=== PATIENT | female | born 1960 | race African-American/Black ===

== ENCOUNTER 2020-11-12 08:53 | Observation (INO) ==
[2020-11-12 12:07] LABS: Basophils % 0.4 % (0.0-0.8); Eosinophils # 0.1 10*3/uL (0.0-0.87); Eosinophils % 1.2 % (0.00-10.9); Hematocrit 26.6 VOL% (35.7-47.0); Hemoglobin 9.1 GM/DL (12.0-16.0); Immature Granulocytes % 0.4 %; Immature Granulocytes Absolute 0.02 #; Lymphocytes # 2.2 10*3/uL (1.4-4.0); Lymphocytes % 43.8 % (21.3-54.2); Mean Corpuscular HGB Conc 34.2 GM/DL (32-36); Mean Platelet Volume 10.9 FL (9.6-12.0); Monocytes % 15.6 % (1.7-12.7); Neutrophils % 38.6 % (38.7-73.9); Platelet Count 106 T/CUMM (130-400); Red Blood Count 2.86 MC/CUMM (3.8-5.5)
[2020-11-12 12:55] LABS: Anisocytosis 1+; Lymphocytes 30 % (20-55); Platelet Estimate Adequate; Segmented Neutrophils 57 % (50-85); Smudge Cells 1+; Target Cells 1+; Total Cells Counted 100
[2020-11-12 12:56] LABS: Macrocytosis 2+
[2020-11-12 13:04] LABS: Bilirubin,Urine Negative (Negative); Blood, Urine Small mg/dL (Negative); Glucose,Urine (UA) Negative (Negative); Ketones,Urine Negative (Negative); Nitrite,Urine Negative (Negative); Protein,Urine Negative; RBC,Urine 3 /HPF (0-4); Squamous Epithelial Cell,Urine Occasional /HPF (0-10); Urine Appearance CLEAR (Clear); Urine Color Amber (Yellow); Urine Specific Gravity 1.006 (1.001-1.035)
[2020-11-12 14:33] LABS: Albumin 1.4 G/DL (3.4-5.0); Bilirubin,Total 4.6 MG/DL (0.20-1.00); Calcium 7.7 MG/DL (8.5-10.1); Osmolality,Calculated 273.7 MOS/KG (273-304); Potassium 2.6 MMOL/L (3.5-5.1); Total Protein 8.1 G/DL (6.4-8.2)
[2020-11-12] MEDS ORDERED: POTASSIUM CHLORIDE 20 MEQ TABLET PO STA (14:39)
[2020-11-12] MEDS ORDERED: ONDANSETRON 4 MG/2 ML VIAL IV PRN (15:36)
[2020-11-12] MEDS ORDERED: DEXTROSE 50% 25 GM/50 ML VIAL IV PRN (15:36)
[2020-11-12] MEDS ORDERED: GLUCAGON 1 MG VIAL IM PRN (15:36)
[2020-11-12 16:36] LABS: Barbiturates Screen,Urine Negative (Negative); Benzodiazepines Screen,Urine Negative (Negative); Cannabinoid Screen,Urine Negative (Negative); Opiate Screen,Urine Negative (Negative); Phencyclidine Screen,Urine Negative (Negative)
[2020-11-12] MEDS ORDERED: POTASSIUM CHLORIDE RIDER 20 MEQ/100 ML PREMIX IV PRN (17:06)
[2020-11-12] MEDS ORDERED: POTASSIUM CHLORIDE RIDER 10 MEQ/100 ML PREMIX IV PRN (17:06)
[2020-11-12 17:19] LABS: Basophils % 0.4 % (0.0-0.8); Eosinophils # 0.1 10*3/uL (0.0-0.87); Hemoglobin 8.4 GM/DL (12.0-16.0); Immature Granulocytes % 0.4 %; Immature Granulocytes Absolute 0.02 #; Lymphocytes # 2.1 10*3/uL (1.4-4.0); Lymphocytes % 42.8 % (21.3-54.2); Mean Platelet Volume 9.8 FL (9.6-12.0); Monocytes % 14.5 % (1.7-12.7); Neutrophils % 40.9 % (38.7-73.9); Platelet Count 103 T/CUMM (130-400); Red Blood Count 2.61 MC/CUMM (3.8-5.5); Red Cell Distribution Width 16.8 % (9.3-17.3); White Blood Count 4.8 T/CUMM (4-12)
[2020-11-12 17:37] LABS: % Iron Saturation 92.1 % (18-50); Total Protein 7.9 G/DL (6.4-8.2)
[2020-11-12] MEDS: POTASSIUM CHLORIDE 20 MEQ TABLET PO PRN ×3 (17:39→23:26)
[2020-11-12 17:40] LABS: Eosinophils 4 % (0-10); Lymphocytes 24 % (20-55); Platelet Estimate Adequate; Segmented Neutrophils 63 % (50-85); Smudge Cells 1+; Total Cells Counted 100
[2020-11-12 17:40] LABS: Partial Thromboplastin Time 52.8 SECS (23.9-33.8)
[2020-11-12 17:41] LABS: Anisocytosis 2+; Macrocytosis 2+; Target Cells 1+
[2020-11-12 17:54] LABS: INR 2.7; PT Patient Result 27.2 SECS (10.5-12.0)
[2020-11-12 18:23] LABS: Folate 5.89 NG/ML (5.38-24.0); Vitamin B12 > 2000 PG/ML (211-911)
[2020-11-12 18:27] LABS: Sedimentation Rate-Westergren 125 MM/HR (0-30)
[2020-11-13] MEDS: POTASSIUM CHLORIDE 20 MEQ TABLET PO PRN (00:58)
[2020-11-13 06:13] LABS: Basophils % 0.4 % (0.0-0.8); Eosinophils # 0.1 10*3/uL (0.0-0.87); Eosinophils % 1.5 % (0.00-10.9); Hematocrit 20.3 VOL% (35.7-47.0); Hemoglobin 7.2 GM/DL (12.0-16.0); Immature Granulocytes % 0.4 %; Immature Granulocytes Absolute 0.02 #; Lymphocytes # 2.7 10*3/uL (1.4-4.0); Mean Corpuscular HGB Conc 35.5 GM/DL (32-36); Mean Corpuscular Volume 91.9 FL (87-102); Mean Platelet Volume 9.7 FL (9.6-12.0); Monocytes % 13.6 % (1.7-12.7); Neutrophils % 35.1 % (38.7-73.9); Red Blood Count 2.21 MC/CUMM (3.8-5.5); Red Cell Distribution Width 16.7 % (9.3-17.3); White Blood Count 5.5 T/CUMM (4-12)
[2020-11-13 06:14] LABS: Platelet Count 97 T/CUMM (130-400)
[2020-11-13] MEDS ORDERED: ACETAMINOPHEN 325 MG TABLET PO ONE (06:22)
[2020-11-13 06:28] LABS: Eosinophils 3 % (0-10); Hypochromasia 1+; Lymphocytes 37 % (20-55); Platelet Estimate Decreased; Segmented Neutrophils 51 % (50-85); Target Cells Few; Total Cells Counted 100
[2020-11-13 07:55] LABS: Total Protein (Chem) 7.9 G/DL (6.4-8.3)
[2020-11-13] MEDS ORDERED: PHYTONADIONE 5 MG/5 ML ORAL.SYR PO ONE (07:55)
[2020-11-13 07:57] LABS: Albumin 1.2 G/DL (3.4-5.0); Bilirubin,Total 4.7 MG/DL (0.20-1.00); Calcium 7.6 MG/DL (8.5-10.1); Osmolality,Calculated 278.1 MOS/KG (273-304); Potassium 2.9 MMOL/L (3.5-5.1); Total Protein 6.7 G/DL (6.4-8.2)
[2020-11-13 09:25] LABS: Albumin (SPE) Rel % 25.2 %; Alpha 1 (SPE) 0.1 G/DL (0.1-0.4); Alpha 1 (SPE) Rel % 1.4 %; Alpha 2 (SPE) 0.3 G/DL (0.4-1.0); Alpha 2 (SPE) Rel % 3.6 %; Beta (SPE) 0.5 G/DL (0.5-1.1); Beta (SPE) Rel % 6.5 %; Gamma (SPE) Rel % 63.3 %
[2020-11-13] MEDS: MULTIVITAMIN (BEROCCA) TABLET PO SCH (09:39)
[2020-11-13] MEDS: POTASSIUM CHLORIDE 20 MEQ TABLET PO SCH ×2 (09:39→12:29)
[2020-11-13] MEDS: FOLIC ACID 1 MG TABLET PO SCH (09:39)
[2020-11-13] MEDS: PANTOPRAZOLE 40 MG TABLET PO SCH (09:39)
[2020-11-13] MEDS: THIAMINE 100 MG TABLET PO SCH (09:39)
[2020-11-13 10:12] LABS: Hematocrit 22.9 VOL% (35.7-47.0); Hemoglobin 7.8 GM/DL (12.0-16.0)
[2020-11-13 10:26] LABS: Hepatitis B Core IgM Quant 0.09 Index; Hepatitis B Surface Ag Quant 0.23 Index; Hepatitis B Surface Ag Result Non-Reactive (NonReactive); Hepatitis C Virus Ab Quant 0.39 Index; Hepatitis C Virus Ab Result Non-Reactive (NonReactive)
[2020-11-13 15:06] LABS: Hematocrit 21.6 VOL% (35.7-47.0); Hemoglobin 7.4 GM/DL (12.0-16.0)
[2020-11-13 21:11] LABS: Hematocrit 21.5 VOL% (35.7-47.0); Hemoglobin 7.2 GM/DL (12.0-16.0)
[2020-11-14 07:02] LABS: Albumin 1.2 G/DL (3.4-5.0); Calcium 7.3 MG/DL (8.5-10.1); Osmolality,Calculated 281.8 MOS/KG (273-304); Potassium 3.2 MMOL/L (3.5-5.1)
[2020-11-14 07:48] LABS: Basophils % 0.3 % (0.0-0.8); Eosinophils # 0.1 10*3/uL (0.0-0.87); Eosinophils % 1.4 % (0.00-10.9); Hematocrit 23.9 VOL% (35.7-47.0); Hemoglobin 8.3 GM/DL (12.0-16.0); Immature Granulocytes % 0.3 %; Immature Granulocytes Absolute 0.02 #; Lymphocytes % 51.6 % (21.3-54.2); Mean Corpuscular HGB Conc 34.7 GM/DL (32-36); Mean Corpuscular Volume 93.7 FL (87-102); Mean Platelet Volume 9.7 FL (9.6-12.0); Monocytes % 10.2 % (1.7-12.7); Neutrophils % 36.2 % (38.7-73.9); Platelet Count 103 T/CUMM (130-400); Red Blood Count 2.55 MC/CUMM (3.8-5.5); Red Cell Distribution Width 17.5 % (9.3-17.3); White Blood Count 5.8 T/CUMM (4-12)
[2020-11-14 08:01] LABS: PT Patient Result 26.4 SECS (10.5-12.0)
[2020-11-14 08:02] LABS: INR 2.5
[2020-11-14 08:04] VITALS: BP 129/67
[2020-11-14 08:09] LABS: Eosinophils 1 % (0-10); Hypochromasia 1+; Lymphocytes 44 % (20-55); Microcytosis 1+; Platelet Estimate Decreased; Segmented Neutrophils 48 % (50-85); Total Cells Counted 100
[2020-11-14] MEDS ORDERED: PHYTONADIONE 5 MG/5 ML ORAL.SYR PO ONE (09:00)
[2020-11-14] MEDS ORDERED: POTASSIUM CHLORIDE 20 MEQ TABLET PO ONE (09:00)
[2020-11-14 10:31] LABS: Hemoglobin A1 (Alkaline) 97.4 % (96.5-98.5); Hemoglobin A2 (Alkaline) 2.6 % (1.5-3.5)
[2020-11-14] MEDS: MULTIVITAMIN (BEROCCA) TABLET PO SCH (10:57)
[2020-11-14] MEDS: THIAMINE 100 MG TABLET PO SCH (10:57)
[2020-11-14] MEDS: PANTOPRAZOLE 40 MG TABLET PO SCH (10:58)
[2020-11-14] MEDS: FOLIC ACID 1 MG TABLET PO SCH (10:58)
== END 2020-11-14 11:36 | disposition home or self-care (01) ==
LOC: N.ED 08:53 → N.EDINP 08:53 → N.5E 16:25 → UNDODISOB 11-14 10:50
PROVIDERS: ADMIT Internal Medicine Geriatric Medicine; ATTEND Internal Medicine Geriatric Medicine

== ENCOUNTER 2020-11-21 11:43 | Inpatient (IN) ==
[2020-11-21 13:15] LABS: Basophils % 0.6 % (0.0-0.8); Eosinophils # 0.1 10*3/uL (0.0-0.87); Eosinophils % 1.2 % (0.00-10.9); Hematocrit 26.8 VOL% (35.7-47.0); Immature Granulocytes % 0.5 %; Immature Granulocytes Absolute 0.03 #; Lymphocytes # 2.2 10*3/uL (1.4-4.0); Lymphocytes % 34.5 % (21.3-54.2); Mean Corpuscular HGB Conc 33.6 GM/DL (32-36); Mean Platelet Volume 9.8 FL (9.6-12.0); Monocytes % 10.9 % (1.7-12.7); NRBC # 0.02 10*3/uL; Neutrophils % 52.3 % (38.7-73.9); Platelet Count 122 T/CUMM (130-400); Red Blood Count 2.85 MC/CUMM (3.8-5.5); Red Cell Distribution Width 16.8 % (9.3-17.3); White Blood Count 6.4 T/CUMM (4-12)
[2020-11-21 13:35] LABS: Albumin 1.5 G/DL (3.4-5.0); Bilirubin,Total 4.8 MG/DL (0.20-1.00); Osmolality,Calculated 266.1 MOS/KG (273-304); Potassium 2.8 MMOL/L (3.5-5.1); Total Protein 8.9 G/DL (6.4-8.2)
[2020-11-21] MEDS ORDERED: POTASSIUM CHLORIDE 20 MEQ TABLET PO STA (14:04)
[2020-11-21 14:50] LABS: Partial Thromboplastin Time 51.2 SECS (23.9-33.8)
[2020-11-21 15:00] LABS: INR > 17.6; PT Patient Result > 178.9 SECS (10.5-12.0)
[2020-11-21] MEDS ORDERED: GLUCAGON 1 MG VIAL IM PRN (16:22)
[2020-11-21] MEDS ORDERED: DEXTROSE 50% 25 GM/50 ML VIAL IV PRN (16:22)
[2020-11-21] MEDS ORDERED: ONDANSETRON 4 MG/2 ML VIAL IV PRN (16:22)
[2020-11-21] MEDS ORDERED: hydrALAZINE 20 MG/1 ML VIAL IV PRN (16:22)
[2020-11-21] MEDS ORDERED: SODIUM CHLORIDE 0.9% 1,000 ML IV PRN ×2 (16:27→21:01)
[2020-11-21] MEDS ORDERED: PHYTONADIONE INJ 10 MG in SODIUM CHLORIDE 0.9% 50 ML IV ONE (16:28)
[2020-11-21 19:10] LABS: PT Patient Result > 178.9 SECS (10.5-12.0)
[2020-11-21 19:18] LABS: INR > 17.6
[2020-11-21] MEDS ORDERED: PHYTONADIONE 5 MG/5 ML ORAL.SYR PO ONE (20:59)
[2020-11-22 02:43] LABS: Amorphous Crystals,Urine Few /HPF (Few); Bacteria,Urine Few /HPF (Few); Bilirubin,Urine Negative (Negative); Blood, Urine Negative (Negative); Glucose,Urine (UA) Negative (Negative); Ketones,Urine Negative (Negative); Nitrite,Urine Negative (Negative); Protein,Urine Negative; RBC,Urine 1 /HPF (0-4); Squamous Epithelial Cell,Urine Occasional /HPF (0-10); Urine Appearance CLEAR (Clear); Urine Color Amber (Yellow); Urine Specific Gravity 1.005 (1.001-1.035)
[2020-11-22 06:04] LABS: INR 1.4
[2020-11-22 06:06] LABS: PT Patient Result 15.7 SECS (10.5-12.0)
[2020-11-22 06:10] LABS: Albumin 1.9 G/DL (3.4-5.0); Bilirubin,Total 3.7 MG/DL (0.20-1.00); Calcium 8.1 MG/DL (8.5-10.1); Osmolality,Calculated 278.1 MOS/KG (273-304); Potassium 2.8 MMOL/L (3.5-5.1)
[2020-11-22 07:00] LABS: Basophils % 0.4 % (0.0-0.8); Eosinophils # 0.1 10*3/uL (0.0-0.87); Eosinophils % 1.3 % (0.00-10.9); Immature Granulocytes % 0.2 %; Immature Granulocytes Absolute 0.01 #; Lymphocytes # 1.8 10*3/uL (1.4-4.0); Lymphocytes % 37.9 % (21.3-54.2); Mean Corpuscular Volume 94.1 FL (87-102); Mean Platelet Volume 9.8 FL (9.6-12.0); Monocytes % 16.7 % (1.7-12.7); Neutrophils % 43.5 % (38.7-73.9); Red Blood Count 1.88 MC/CUMM (3.8-5.5); Red Cell Distribution Width 16.6 % (9.3-17.3); White Blood Count 4.7 T/CUMM (4-12)
[2020-11-22 07:09] LABS: Hematocrit 17.7 VOL% (35.7-47.0); Hemoglobin 6.2 GM/DL (12.0-16.0); Platelet Count 85 T/CUMM (130-400)
[2020-11-22 07:17] LABS: Hepatitis B Core IgM Quant 0.08 Index; Hepatitis B Surface Ag Quant < 0.10 Index; Hepatitis B Surface Ag Result Non-Reactive (NonReactive); Hepatitis C Virus Ab Quant 0.22 Index; Hepatitis C Virus Ab Result Non-Reactive (NonReactive)
[2020-11-22 07:33] LABS: Anisocytosis 2+; Band Neutrophils 2 % (0-10); Eosinophils 2 % (0-10); Lymphocytes 34 % (20-55); Platelet Estimate Decreased; Segmented Neutrophils 47 % (50-85); Target Cells 2+; Total Cells Counted 100
[2020-11-22 07:34] LABS: Macrocytosis 1+; Poikilocytosis Slight; Polychromasia Slight
[2020-11-22] MEDS ORDERED: SODIUM CHLORIDE 0.9% 1,000 ML IV PRN (08:57)
[2020-11-22 09:08] LABS: Hematocrit 18.4 VOL% (35.7-47.0)
[2020-11-22 09:24] LABS: Hemoglobin 6.1 GM/DL (12.0-16.0)
[2020-11-22] MEDS: POTASSIUM CHLORIDE 20 MEQ TABLET PO SCH ×3 (10:51→13:38)
[2020-11-22] MEDS: PANTOPRAZOLE 40 MG VIAL IV SCH ×2 (10:52→20:37)
[2020-11-22 13:52] LABS: Folate 6.16 NG/ML (5.38-24.0); Vitamin B12 > 2000 PG/ML (211-911)
[2020-11-22 14:02] LABS: % Iron Saturation 35.7 % (18-50); Ferritin 255.9 ng/mL (8-252)
[2020-11-22] MEDS ORDERED: MAGNESIUM SULF RIDER 2 GM/50 ML PREMIX IV ONE (15:00)
[2020-11-22 16:48] LABS: Total Protein,Peritoneal Fluid 1.4 G/DL
[2020-11-22 17:05] LABS: RBC,Peritoneal Fluid 54 T/CUMM
[2020-11-22] MEDS ORDERED: LACTULOSE 20 GM/30 ML UDCUP PO SCH (21:00)
[2020-11-22] MEDS ORDERED: CALCIUM (CARBONATE) 500 MG TABLET PO SCH (21:00)
[2020-11-23] MEDS ORDERED: MAGNESIUM SULF RIDER 4 GM/100 ML PREMIX IV PRN
[2020-11-23] MEDS ORDERED: MAGNESIUM SULF RIDER 2 GM/50 ML PREMIX IV PRN
[2020-11-23] MEDS ORDERED: POTASSIUM CHLORIDE 20 MEQ TABLET PO PRN
[2020-11-23] MEDS ORDERED: POTASSIUM CHLORIDE RIDER 10 MEQ/100 ML PREMIX IV PRN
[2020-11-23 04:16] VITALS: BP 109/64
[2020-11-23 05:29] LABS: Basophils % 0.4 % (0.0-0.8); Eosinophils # 0.1 10*3/uL (0.0-0.87); Eosinophils % 1.8 % (0.00-10.9); Hematocrit 25.8 VOL% (35.7-47.0); Immature Granulocytes % 0.5 %; Immature Granulocytes Absolute 0.03 #; Lymphocytes # 2.5 10*3/uL (1.4-4.0); Mean Corpuscular HGB Conc 33.3 GM/DL (32-36); Mean Corpuscular Volume 92.5 FL (87-102); Mean Platelet Volume 9.6 FL (9.6-12.0); Monocytes % 15.8 % (1.7-12.7); Neutrophils % 36.5 % (38.7-73.9); Platelet Count 77 T/CUMM (130-400); Red Cell Distribution Width 17.2 % (9.3-17.3); White Blood Count 5.6 T/CUMM (4-12)
[2020-11-23 05:33] LABS: INR 1.8; PT Patient Result 19.6 SECS (10.5-12.0)
[2020-11-23 05:46] LABS: Hemoglobin 8.6 GM/DL (12.0-16.0)
[2020-11-23 05:47] LABS: Red Blood Count 2.79 MC/CUMM (3.8-5.5)
[2020-11-23 05:51] LABS: Eosinophils 1 % (0-10); Lymphocytes 31 % (20-55); Platelet Estimate Decreased; Segmented Neutrophils 55 % (50-85); Total Cells Counted 100
[2020-11-23 05:54] LABS: Albumin 1.5 G/DL (3.4-5.0); Bilirubin,Total 3.9 MG/DL (0.20-1.00); Calcium 8.2 MG/DL (8.5-10.1); Osmolality,Calculated 278.1 MOS/KG (273-304); Potassium 3.5 MMOL/L (3.5-5.1); Total Protein 6.6 G/DL (6.4-8.2)
[2020-11-25] MEDS ORDERED: LACTATED RINGERS 1,000 ML IV SCH (08:00)
== END 2020-11-23 07:45 | disposition home or self-care (01) | DRG 433 ==
LOC: N.ED 11:43 → SUATTDRO 16:19 → N.5E 16:19
PROVIDERS: ADMIT Internal Medicine; ATTEND Internal Medicine

== ENCOUNTER 2021-01-13 12:09 | Inpatient (IN) ==
[2021-01-13 14:44] LABS: Basophils % 0.6 % (0.0-0.8); Eosinophils % 0.4 % (0.00-10.9); Hematocrit 29.5 VOL% (35.7-47.0); Hemoglobin 9.8 GM/DL (12.0-16.0); Immature Granulocytes % 0.6 %; Immature Granulocytes Absolute 0.04 #; Lymphocytes # 1.9 10*3/uL (1.4-4.0); Lymphocytes % 27.8 % (21.3-54.2); Mean Corpuscular HGB Conc 33.2 GM/DL (32-36); Mean Corpuscular Volume 91.3 FL (87-102); Mean Platelet Volume 10.2 FL (9.6-12.0); Monocytes % 12.6 % (1.7-12.7); Platelet Count 112 T/CUMM (130-400); Red Blood Count 3.23 MC/CUMM (3.8-5.5); Red Cell Distribution Width 19.4 % (9.3-17.3); White Blood Count 6.8 T/CUMM (4-12)
[2021-01-13 14:54] LABS: Bilirubin,Urine Negative (Negative); Blood, Urine Negative (Negative); Glucose,Urine (UA) Negative (Negative); Ketones,Urine Negative (Negative); Mucus,Urine Occasional /LPF (Occasional); Nitrite,Urine Negative (Negative); Protein,Urine Negative; RBC,Urine 1 /HPF (0-4); Squamous Epithelial Cell,Urine Occasional /HPF (0-10); Urine Appearance CLEAR (Clear); Urine Color Amber (Yellow); Urine Specific Gravity 1.017 (1.001-1.035)
[2021-01-13 14:56] LABS: INR 1.9; Partial Thromboplastin Time 56.8 SECS (23.8-32.1)
[2021-01-13 15:09] LABS: Bilirubin,Total 3.4 MG/DL (0.20-1.00); Calcium 9.2 MG/DL (8.5-10.1); Osmolality,Calculated 283.3 MOS/KG (273-304); Potassium 4.2 MMOL/L (3.5-5.1); Total Protein 9.6 G/DL (6.4-8.2)
[2021-01-13] MEDS ORDERED: ONDANSETRON 4 MG/2 ML VIAL IV PRN (15:22)
[2021-01-13] MEDS ORDERED: LACTULOSE 20 GM/30 ML UDCUP PO STA (15:25)
[2021-01-13] MEDS ORDERED: INFLUENZA VIRUS VACCINE 0.5 ML SYRINGE IM ONE (18:32)
[2021-01-13] MEDS: LACTULOSE 20 GM/30 ML UDCUP PO SCH (18:52)
[2021-01-13] MEDS: CYPROHEPTADINE 4 MG TABLET PO SCH (18:53)
[2021-01-13] MEDS: SODIUM CHLORIDE 0.9% 1,000 ML IV SCH (18:53)
[2021-01-13] MEDS: CALCIUM (CARBONATE) 500 MG TABLET PO SCH (22:12)
[2021-01-13] MEDS: levETIRAcetam 500 MG TABLET PO SCH (22:12)
[2021-01-13] MEDS: POTASSIUM CHLORIDE 20 MEQ TABLET PO SCH (22:12)
[2021-01-14] MEDS: LACTULOSE 20 GM/30 ML UDCUP PO SCH ×5 (00:21→23:17)
[2021-01-14 07:45] LABS: Albumin 1.7 G/DL (3.4-5.0); Bilirubin,Total 4.4 MG/DL (0.20-1.00); Osmolality,Calculated 282.1 MOS/KG (273-304); Potassium 3.8 MMOL/L (3.5-5.1); Total Protein 8.5 G/DL (6.4-8.2)
[2021-01-14] MEDS ORDERED: PANTOPRAZOLE 40 MG TABLET PO SCH (09:00)
[2021-01-14 09:17] LABS: Basophils % 0.6 % (0.0-0.8); Eosinophils # 0.1 10*3/uL (0.0-0.87); Eosinophils % 0.8 % (0.00-10.9); Hematocrit 30.4 VOL% (35.7-47.0); Hemoglobin 9.9 GM/DL (12.0-16.0); Immature Granulocytes % 0.5 %; Immature Granulocytes Absolute 0.03 #; Lymphocytes % 30.7 % (21.3-54.2); Mean Corpuscular HGB Conc 32.6 GM/DL (32-36); Mean Corpuscular Volume 90.7 FL (87-102); Mean Platelet Volume 9.7 FL (9.6-12.0); Monocytes % 12.5 % (1.7-12.7); Neutrophils % 54.9 % (38.7-73.9); Platelet Count 104 T/CUMM (130-400); Red Blood Count 3.35 MC/CUMM (3.8-5.5); Red Cell Distribution Width 19.3 % (9.3-17.3); White Blood Count 6.5 T/CUMM (4-12)
[2021-01-14 09:35] LABS: Hypochromasia Slight; Microcytosis Slight
[2021-01-14] MEDS: SODIUM CHLORIDE 0.9% 1,000 ML IV SCH (10:10)
[2021-01-14] MEDS: POTASSIUM CHLORIDE 20 MEQ TABLET PO SCH ×2 (10:12→21:49)
[2021-01-14] MEDS: CYPROHEPTADINE 4 MG TABLET PO SCH ×2 (10:12→17:01)
[2021-01-14] MEDS: CALCIUM (CARBONATE) 500 MG TABLET PO SCH ×2 (10:12→21:48)
[2021-01-14] MEDS: SPIRONOLACTONE 100 MG TABLET PO SCH (10:13)
[2021-01-14] MEDS: levETIRAcetam 500 MG TABLET PO SCH ×2 (10:13→21:48)
[2021-01-14] MEDS: PANTOPRAZOLE 40 MG TABLET PO SCH ×2 (10:14→21:49)
[2021-01-14] MEDS ORDERED: LORazepam 2 MG/1 ML VIAL IV PRN (15:46)
[2021-01-14 16:28] LABS: HDL Cholesterol 21 MG/DL (40-60); Risk Ratio 2.38; Triglycerides 21 MG/DL (2-150); VLDL Cholesterol 4.2 MG/DL
[2021-01-14 16:47] LABS: Folate 9.78 NG/ML (5.38-24.0); Vitamin B12 > 2000 PG/ML (211-911)
[2021-01-15] MEDS: SODIUM CHLORIDE 0.9% 1,000 ML IV SCH ×4 (05:44→20:59)
[2021-01-15 06:29] LABS: Basophils % 0.5 % (0.0-0.8); Eosinophils # 0.1 10*3/uL (0.0-0.87); Eosinophils % 1.1 % (0.00-10.9); Hematocrit 26.1 VOL% (35.7-47.0); Immature Granulocytes % 0.3 %; Immature Granulocytes Absolute 0.02 #; Lymphocytes # 2.3 10*3/uL (1.4-4.0); Lymphocytes % 35.3 % (21.3-54.2); Mean Corpuscular HGB Conc 32.6 GM/DL (32-36); Mean Corpuscular Volume 90.9 FL (87-102); Mean Platelet Volume 9.9 FL (9.6-12.0); Monocytes % 14.7 % (1.7-12.7); Neutrophils % 48.1 % (38.7-73.9); Red Blood Count 2.87 MC/CUMM (3.8-5.5); White Blood Count 6.4 T/CUMM (4-12)
[2021-01-15 06:33] LABS: Platelet Count 100 T/CUMM (130-400)
[2021-01-15 06:34] LABS: Hemoglobin 8.5 GM/DL (12.0-16.0)
[2021-01-15] MEDS: CYPROHEPTADINE 4 MG TABLET PO SCH ×2 (06:36→17:06)
[2021-01-15] MEDS: LACTULOSE 20 GM/30 ML UDCUP PO SCH ×2 (06:36→20:58)
[2021-01-15 06:53] LABS: Albumin 1.7 G/DL (3.4-5.0); Bilirubin,Total 4.3 MG/DL (0.20-1.00); Calcium 8.6 MG/DL (8.5-10.1); Osmolality,Calculated 275.4 MOS/KG (273-304); Potassium 3.9 MMOL/L (3.5-5.1); Total Protein 8.1 G/DL (6.4-8.2)
[2021-01-15] MEDS: PANTOPRAZOLE 40 MG TABLET PO SCH ×2 (09:38→20:58)
[2021-01-15] MEDS: MULTIVITAMIN (CENTRUM) TABLET PO SCH (09:38)
[2021-01-15] MEDS: FOLIC ACID 1 MG TABLET PO SCH (09:39)
[2021-01-15] MEDS: THIAMINE 100 MG TABLET PO SCH (09:39)
[2021-01-15] MEDS: POTASSIUM CHLORIDE 20 MEQ TABLET PO SCH ×2 (09:39→20:58)
[2021-01-15] MEDS: CALCIUM (CARBONATE) 500 MG TABLET PO SCH ×2 (09:39→20:58)
[2021-01-15] MEDS: levETIRAcetam 500 MG TABLET PO SCH ×2 (09:39→20:58)
[2021-01-15] MEDS: SPIRONOLACTONE 100 MG TABLET PO SCH (09:39)
[2021-01-15] MEDS: ASPIRIN CHEW 81 MG TABLET PO SCH (09:39)
[2021-01-15] MEDS: ATORVASTATIN 20 MG TABLET PO SCH (20:58)
[2021-01-16] MEDS: SODIUM CHLORIDE 0.9% 1,000 ML IV SCH ×2 (01:06→15:42)
[2021-01-16 06:05] LABS: INR 2.2; PT Patient Result 23.3 SECS (10.5-12.0)
[2021-01-16 06:18] LABS: Albumin 1.6 G/DL (3.4-5.0); Bilirubin,Total 3.8 MG/DL (0.20-1.00); Calcium 7.8 MG/DL (8.5-10.1); Osmolality,Calculated 279.4 MOS/KG (273-304); Total Protein 7.6 G/DL (6.4-8.2)
[2021-01-16 06:24] LABS: Basophils % 0.6 % (0.0-0.8); Eosinophils # 0.1 10*3/uL (0.0-0.87); Eosinophils % 1.1 % (0.00-10.9); Hematocrit 24.6 VOL% (35.7-47.0); Hemoglobin 7.9 GM/DL (12.0-16.0); Immature Granulocytes % 0.5 %; Immature Granulocytes Absolute 0.03 #; Lymphocytes # 1.9 10*3/uL (1.4-4.0); Lymphocytes % 28.6 % (21.3-54.2); Mean Corpuscular HGB Conc 32.1 GM/DL (32-36); Mean Corpuscular Volume 93.9 FL (87-102); Mean Platelet Volume 10.7 FL (9.6-12.0); Monocytes % 12.4 % (1.7-12.7); NRBC # 0.02 10*3/uL; Neutrophils % 56.8 % (38.7-73.9); Platelet Count 101 T/CUMM (130-400); Red Blood Count 2.62 MC/CUMM (3.8-5.5); Red Cell Distribution Width 18.9 % (9.3-17.3); White Blood Count 6.6 T/CUMM (4-12)
[2021-01-16] MEDS: LACTATED RINGERS 1,000 ML IV SCH (08:23)
[2021-01-16] MEDS ORDERED: ALBUMIN 5% 12.5 GM/250 ML VIAL IV ONE (08:47)
[2021-01-16] MEDS ORDERED: CALCIUM CHLORIDE 1,000 MG/10 ML VIAL IV ONE (08:54)
[2021-01-16] MEDS ORDERED: LIDOCAINE 2% 5 ML VIAL ONE (08:54)
[2021-01-16] MEDS ORDERED: propofoL 200 MG/20 ML VIAL IV ONE (08:54)
[2021-01-16] MEDS ORDERED: PHENYLEPHRINE 1 MG/10 ML SYRINGE IV ONE (08:54)
[2021-01-16] MEDS: levETIRAcetam 500 MG TABLET PO SCH ×2 (09:35→20:52)
[2021-01-16] MEDS: THIAMINE 100 MG TABLET PO SCH (09:35)
[2021-01-16] MEDS: FOLIC ACID 1 MG TABLET PO SCH (09:35)
[2021-01-16] MEDS: SPIRONOLACTONE 100 MG TABLET PO SCH (09:35)
[2021-01-16] MEDS: ASPIRIN CHEW 81 MG TABLET PO SCH (09:35)
[2021-01-16] MEDS: PANTOPRAZOLE 40 MG TABLET PO SCH ×2 (09:35→20:52)
[2021-01-16] MEDS: CALCIUM (CARBONATE) 500 MG TABLET PO SCH ×2 (09:35→20:52)
[2021-01-16] MEDS: MULTIVITAMIN (CENTRUM) TABLET PO SCH (09:35)
[2021-01-16] MEDS: CYPROHEPTADINE 4 MG TABLET PO SCH ×2 (09:35→16:50)
[2021-01-16] MEDS: POTASSIUM CHLORIDE 20 MEQ TABLET PO SCH ×2 (09:35→20:52)
[2021-01-16] MEDS: LACTULOSE 20 GM/30 ML UDCUP PO SCH ×2 (09:35→20:52)
[2021-01-16 13:33] LABS: Hematocrit 22.8 VOL% (35.7-47.0); Hemoglobin 7.5 GM/DL (12.0-16.0)
[2021-01-16] MEDS: ATORVASTATIN 20 MG TABLET PO SCH (20:52)
[2021-01-16] MEDS: RIFAXIMIN 550 MG TABLET PO SCH (20:52)
[2021-01-17 05:10] LABS: Basophils % 0.1 % (0.0-0.8); Eosinophils # 0.1 10*3/uL (0.0-0.87); Eosinophils % 1.5 % (0.00-10.9); Hemoglobin 7.7 GM/DL (12.0-16.0); Immature Granulocytes % 0.6 %; Immature Granulocytes Absolute 0.04 #; Lymphocytes % 27.7 % (21.3-54.2); Mean Corpuscular HGB Conc 32.1 GM/DL (32-36); Mean Corpuscular Volume 92.7 FL (87-102); Mean Platelet Volume 9.6 FL (9.6-12.0); Monocytes % 11.1 % (1.7-12.7); NRBC # 0.02 10*3/uL; Platelet Count 89 T/CUMM (130-400); Red Blood Count 2.59 MC/CUMM (3.8-5.5); Red Cell Distribution Width 18.6 % (9.3-17.3); White Blood Count 7.2 T/CUMM (4-12)
[2021-01-17 05:32] LABS: Calcium 9.7 MG/DL (8.5-10.1); Potassium 4.5 MMOL/L (3.5-5.1)
[2021-01-17 05:35] LABS: Atypical Lymphocytes Few
[2021-01-17] MEDS: SODIUM CHLORIDE 0.9% 1,000 ML IV SCH (05:35)
[2021-01-17] MEDS ORDERED: SODIUM CHLORIDE 0.9% 1,000 ML IV PRN (08:11)
[2021-01-17] MEDS: RIFAXIMIN 550 MG TABLET PO SCH (09:16)
[2021-01-17] MEDS: MULTIVITAMIN (CENTRUM) TABLET PO SCH (09:16)
[2021-01-17] MEDS: SPIRONOLACTONE 100 MG TABLET PO SCH (09:16)
[2021-01-17] MEDS: levETIRAcetam 500 MG TABLET PO SCH (09:17)
[2021-01-17] MEDS: CALCIUM (CARBONATE) 500 MG TABLET PO SCH (09:17)
[2021-01-17] MEDS: PANTOPRAZOLE 40 MG TABLET PO SCH (09:17)
[2021-01-17] MEDS: THIAMINE 100 MG TABLET PO SCH (09:17)
[2021-01-17] MEDS: CYPROHEPTADINE 4 MG TABLET PO SCH (09:17)
[2021-01-17] MEDS: LACTULOSE 20 GM/30 ML UDCUP PO SCH (09:17)
[2021-01-17] MEDS: POTASSIUM CHLORIDE 20 MEQ TABLET PO SCH (09:17)
[2021-01-17] MEDS: FOLIC ACID 1 MG TABLET PO SCH (09:17)
[2021-01-17] MEDS: LACTATED RINGERS 1,000 ML IV SCH (09:35)
[2021-01-17 14:16] LABS: Hemoglobin 9.6 GM/DL (12.0-16.0)
[2021-01-17 16:06] VITALS: BP 122/63
== END 2021-01-17 16:15 | disposition home health service (06) | DRG 433 ==
LOC: N.ED 12:09 → SUATTDRO 15:22 → N.EDINP 15:22 → N.TELEN 16:46
PROVIDERS: ADMIT Internal Medicine; ATTEND Emergency Medicine

== ENCOUNTER 2021-02-10 17:20 | Inpatient (IN) ==
[2021-02-10] MEDS ORDERED: SODIUM CHLORIDE 0.9% 500 ML IV STA (22:34)
[2021-02-10] MEDS ORDERED: DEXTROSE 50% 25 GM/50 ML VIAL IV STA (23:58)
[2021-02-11] MEDS ORDERED: DEXTROSE 50% 25 GM/50 ML SYRINGE IV STA (00:01)
[2021-02-11 00:35] LABS: Basophils % 0.3 % (0.0-0.8); Eosinophils % 0.2 % (0.00-10.9); Hematocrit 31.8 VOL% (35.7-47.0); Hemoglobin 10.8 GM/DL (12.0-16.0); Immature Granulocytes % 1.3 %; Immature Granulocytes Absolute 0.14 #; Lymphocytes % 9.3 % (21.3-54.2); Mean Corpuscular Volume 85.9 FL (87-102); Mean Platelet Volume 9.1 FL (9.6-12.0); Monocytes % 9.2 % (1.7-12.7); NRBC # 0.04 10*3/uL; Neutrophils % 79.7 % (38.7-73.9); Platelet Count 134 T/CUMM (130-400); Red Cell Distribution Width 19.1 % (9.3-17.3); White Blood Count 10.6 T/CUMM (4-12)
[2021-02-11 01:07] LABS: Barbiturates Screen,Urine Negative (Negative); Benzodiazepines Screen,Urine Negative (Negative); Cannabinoid Screen,Urine Negative (Negative); Opiate Screen,Urine Negative (Negative); Phencyclidine Screen,Urine Negative (Negative)
[2021-02-11 01:12] LABS: PT Patient Result 20.2 SECS (10.5-12.0)
[2021-02-11 01:15] LABS: INR 1.9
[2021-02-11 01:24] LABS: Bilirubin,Urine Negative (Negative); Blood, Urine Large mg/dL (Negative); Glucose,Urine (UA) Negative (Negative); Granular Casts,Urine 29 /LPF (0-1); Ketones,Urine Negative (Negative); Mucus,Urine Occasional /LPF (Occasional); Nitrite,Urine Negative (Negative); Protein,Urine 100 MG/DL; RBC,Urine 2 /HPF (0-4); Squamous Epithelial Cell,Urine Occasional /HPF (0-10); Urine Appearance Slightly Hazy (Clear); Urine Color Amber (Yellow); Urine Specific Gravity 1.018 (1.001-1.035); Urine Urobilinogen < 2.0 EU/DL (<2.0)
[2021-02-11 01:29] LABS: Alanine Aminotransferase 329 U/L (13-56); Albumin 1.8 G/DL (3.4-5.0); Alkaline Phosphatase 66 U/L (45-117); Aspartate Amino Transferase 1870 U/L (0-37); Blood Urea Nitrogen 55 MG/DL (7-18); Calcium 9.3 MG/DL (8.5-10.1); Carbon Dioxide 20 MMOL/L (21-32); Estimated Glom Filtration Rate 26 ML/MIN; Glucose 55 MG/DL (74-106); Osmolality,Calculated 285.8 MOS/KG (273-304); Potassium 5.2 MMOL/L (3.5-5.1); Sodium 137 MMOL/L (136-145); Total Protein 8.5 G/DL (6.4-8.2)
[2021-02-11 02:04] LABS: CKMB % 0.6 %
[2021-02-11 02:22] LABS: Platelet Estimate Decreased
[2021-02-11 02:23] LABS: Polychromasia Few
[2021-02-11] MEDS ORDERED: GLUCAGON 1 MG VIAL IM PRN (02:50)
[2021-02-11] MEDS ORDERED: ONDANSETRON 4 MG/2 ML VIAL IV PRN (02:50)
[2021-02-11] MEDS ORDERED: DEXTROSE 50% 25 GM/50 ML SYRINGE IV PRN (03:20)
[2021-02-11] MEDS: ENOXAPARIN 30 MG/0.3 ML SYRINGE SUBCUT SCH (04:46)
[2021-02-11] MEDS: SODIUM CHLORIDE 0.9% 1,000 ML IV SCH ×3 (04:47→18:02)
[2021-02-11] MEDS: LACTULOSE 20 GM/30 ML UDCUP PO SCH ×4 (04:47→21:15)
[2021-02-11 08:28] LABS: High Sensitive Troponin I* 145.3 ng/L (0-54)
[2021-02-11] MEDS: PANTOPRAZOLE 40 MG VIAL IV SCH (08:35)
[2021-02-11 08:50] LABS: CKMB % 0.6 %
[2021-02-11] MEDS: INSULIN REGULAR 100 UNIT/ML SUBCUT SCH ×4 (09:13→20:52)
[2021-02-11] MEDS: RIFAXIMIN 550 MG TABLET PO SCH (21:15)
[2021-02-12] MEDS: SODIUM CHLORIDE 0.9% 1,000 ML IV SCH ×3 (03:22→23:39)
[2021-02-12] MEDS: ENOXAPARIN 30 MG/0.3 ML SYRINGE SUBCUT SCH (03:22)
[2021-02-12] MEDS: LACTULOSE 20 GM/30 ML UDCUP PO SCH ×4 (03:22→21:04)
[2021-02-12 05:36] LABS: Basophils % 0.3 % (0.0-0.8); Eosinophils # 0.1 10*3/uL (0.0-0.87); Eosinophils % 0.5 % (0.00-10.9); Hematocrit 26.7 VOL% (35.7-47.0); Hemoglobin 8.8 GM/DL (12.0-16.0); Immature Granulocytes % 0.8 %; Immature Granulocytes Absolute 0.08 #; Lymphocytes # 1.1 10*3/uL (1.4-4.0); Lymphocytes % 11.4 % (21.3-54.2); Mean Platelet Volume 9.2 FL (9.6-12.0); Monocytes % 10.2 % (1.7-12.7); NRBC # 0.03 10*3/uL; Neutrophils % 76.8 % (38.7-73.9); Platelet Count 112 T/CUMM (130-400); Red Blood Count 3.07 MC/CUMM (3.8-5.5); Red Cell Distribution Width 19.2 % (9.3-17.3); White Blood Count 9.8 T/CUMM (4-12)
[2021-02-12 06:01] LABS: Albumin 1.5 G/DL (3.4-5.0); Bilirubin,Total 5.5 MG/DL (0.20-1.00); Osmolality,Calculated 289.5 MOS/KG (273-304); Potassium 4.5 MMOL/L (3.5-5.1); Thyroid Stimulating Hormone 4.15 uIU/ml (0.358-3.74); Total Protein 7.7 G/DL (6.4-8.2)
[2021-02-12] MEDS: INSULIN REGULAR 100 UNIT/ML SUBCUT SCH ×4 (07:36→21:18)
[2021-02-12] MEDS: PANTOPRAZOLE 40 MG VIAL IV SCH (08:23)
[2021-02-12] MEDS: RIFAXIMIN 550 MG TABLET PO SCH ×2 (08:23→21:04)
[2021-02-13] MEDS: LACTULOSE 20 GM/30 ML UDCUP PO SCH ×4 (05:24→20:21)
[2021-02-13] MEDS: ENOXAPARIN 30 MG/0.3 ML SYRINGE SUBCUT SCH (05:24)
[2021-02-13 06:51] LABS: Basophils % 0.2 % (0.0-0.8); Eosinophils # 0.1 10*3/uL (0.0-0.87); Eosinophils % 0.7 % (0.00-10.9); Hematocrit 27.5 VOL% (35.7-47.0); Hemoglobin 9.1 GM/DL (12.0-16.0); Immature Granulocytes % 0.8 %; Immature Granulocytes Absolute 0.07 #; Lymphocytes % 11.1 % (21.3-54.2); Mean Corpuscular HGB Conc 33.1 GM/DL (32-36); Mean Corpuscular Volume 87.9 FL (87-102); Mean Platelet Volume 8.9 FL (9.6-12.0); Monocytes % 8.2 % (1.7-12.7); NRBC # 0.02 10*3/uL; Platelet Count 106 T/CUMM (130-400); Red Blood Count 3.13 MC/CUMM (3.8-5.5); Red Cell Distribution Width 19.9 % (9.3-17.3); White Blood Count 8.6 T/CUMM (4-12)
[2021-02-13 07:17] LABS: Albumin 1.1 G/DL (3.4-5.0); Bilirubin,Total 5.5 MG/DL (0.20-1.00); Calcium 9.1 MG/DL (8.5-10.1); Osmolality,Calculated 289.5 MOS/KG (273-304); Potassium 4.3 MMOL/L (3.5-5.1); Total Protein 7.5 G/DL (6.4-8.2)
[2021-02-13] MEDS: PANTOPRAZOLE 40 MG VIAL IV SCH (09:50)
[2021-02-13] MEDS: RIFAXIMIN 550 MG TABLET PO SCH ×2 (09:50→20:21)
[2021-02-13] MEDS: MULTIVITAMIN (CENTRUM) TABLET PO SCH (09:50)
[2021-02-13] MEDS: INSULIN REGULAR 100 UNIT/ML SUBCUT SCH ×4 (11:45→20:21)
[2021-02-13] MEDS: SODIUM CHLORIDE 0.9% 1,000 ML IV SCH ×2 (11:46→14:03)
[2021-02-14] MEDS: LACTULOSE 20 GM/30 ML UDCUP PO SCH ×4 (03:37→21:45)
[2021-02-14] MEDS: ENOXAPARIN 30 MG/0.3 ML SYRINGE SUBCUT SCH (03:37)
[2021-02-14] MEDS: SODIUM CHLORIDE 0.9% 1,000 ML IV SCH ×2 (03:37→12:49)
[2021-02-14 07:35] LABS: Basophils % 0.2 % (0.0-0.8); Eosinophils # 0.1 10*3/uL (0.0-0.87); Eosinophils % 1.1 % (0.00-10.9); Hematocrit 27.1 VOL% (35.7-47.0); Hemoglobin 8.8 GM/DL (12.0-16.0); Immature Granulocytes % 0.9 %; Immature Granulocytes Absolute 0.07 #; Lymphocytes # 0.8 10*3/uL (1.4-4.0); Lymphocytes % 10.3 % (21.3-54.2); Mean Corpuscular HGB Conc 32.5 GM/DL (32-36); Mean Corpuscular Volume 89.1 FL (87-102); Mean Platelet Volume 9.3 FL (9.6-12.0); NRBC # 0.02 10*3/uL; Neutrophils % 76.5 % (38.7-73.9); Platelet Count 104 T/CUMM (130-400); Red Blood Count 3.04 MC/CUMM (3.8-5.5); Red Cell Distribution Width 20.6 % (9.3-17.3); White Blood Count 8.1 T/CUMM (4-12)
[2021-02-14 08:01] LABS: Albumin 1.4 G/DL (3.4-5.0); Bilirubin,Total 5.2 MG/DL (0.20-1.00); Calcium 9.7 MG/DL (8.5-10.1); Osmolality,Calculated 292.3 MOS/KG (273-304); Potassium 4.1 MMOL/L (3.5-5.1); Total Protein 7.5 G/DL (6.4-8.2)
[2021-02-14] MEDS: MULTIVITAMIN (CENTRUM) TABLET PO SCH (08:45)
[2021-02-14] MEDS: RIFAXIMIN 550 MG TABLET PO SCH ×2 (08:45→21:45)
[2021-02-14] MEDS: INSULIN REGULAR 100 UNIT/ML SUBCUT SCH ×3 (08:46→17:08)
[2021-02-14] MEDS: PANTOPRAZOLE 40 MG VIAL IV SCH (08:46)
[2021-02-14] MEDS ORDERED: SODIUM CHLORIDE 0.9% 1,000 ML IV SCH (11:00)
[2021-02-14] MEDS: DEXTROSE 5% NACL 0.45% 1,000 ML IV SCH (12:32)
[2021-02-15] MEDS: INSULIN REGULAR 100 UNIT/ML SUBCUT SCH ×5 (03:57→23:27)
[2021-02-15] MEDS: LACTULOSE 20 GM/30 ML UDCUP PO SCH ×4 (04:04→23:27)
[2021-02-15] MEDS: DEXTROSE 5% NACL 0.45% 1,000 ML IV SCH ×2 (04:04→15:04)
[2021-02-15] MEDS: ENOXAPARIN 30 MG/0.3 ML SYRINGE SUBCUT SCH (04:04)
[2021-02-15 06:08] LABS: Basophils % 0.3 % (0.0-0.8); Eosinophils # 0.1 10*3/uL (0.0-0.87); Eosinophils % 1.9 % (0.00-10.9); Hematocrit 27.9 VOL% (35.7-47.0); Hemoglobin 9.3 GM/DL (12.0-16.0); Immature Granulocytes % 1.5 %; Immature Granulocytes Absolute 0.11 #; Lymphocytes # 1.3 10*3/uL (1.4-4.0); Lymphocytes % 17.4 % (21.3-54.2); Mean Corpuscular HGB Conc 33.3 GM/DL (32-36); Mean Platelet Volume 9.8 FL (9.6-12.0); Monocytes % 10.8 % (1.7-12.7); NRBC # 0.04 10*3/uL; Neutrophils % 68.1 % (38.7-73.9); Platelet Count 100 T/CUMM (130-400); Red Cell Distribution Width 20.9 % (9.3-17.3); White Blood Count 7.3 T/CUMM (4-12)
[2021-02-15 06:21] LABS: Calcium 10.1 MG/DL (8.5-10.1); Osmolality,Calculated 288.5 MOS/KG (273-304); Total Protein 7.2 G/DL (6.4-8.2)
[2021-02-15 09:26] LABS: Platelet Estimate Adequate; Polychromasia Slight; Target Cells Few
[2021-02-15] MEDS: MULTIVITAMIN (CENTRUM) TABLET PO SCH (09:41)
[2021-02-15] MEDS: RIFAXIMIN 550 MG TABLET PO SCH ×2 (09:42→23:27)
[2021-02-15] MEDS: PANTOPRAZOLE 40 MG VIAL IV SCH (09:42)
[2021-02-16] MEDS: DEXTROSE 5% NACL 0.45% 1,000 ML IV SCH ×2 (04:52→17:01)
[2021-02-16] MEDS: LACTULOSE 20 GM/30 ML UDCUP PO SCH ×4 (04:52→21:03)
[2021-02-16] MEDS: ENOXAPARIN 30 MG/0.3 ML SYRINGE SUBCUT SCH (04:52)
[2021-02-16 05:23] LABS: Basophils % 0.4 % (0.0-0.8); Eosinophils # 0.2 10*3/uL (0.0-0.87); Hematocrit 30.7 VOL% (35.7-47.0); Hemoglobin 9.8 GM/DL (12.0-16.0); Immature Granulocytes % 2.5 %; Immature Granulocytes Absolute 0.21 #; Lymphocytes # 1.4 10*3/uL (1.4-4.0); Lymphocytes % 16.6 % (21.3-54.2); Mean Corpuscular HGB Conc 31.9 GM/DL (32-36); Mean Corpuscular Volume 90.8 FL (87-102); Mean Platelet Volume 9.8 FL (9.6-12.0); Monocytes % 13.5 % (1.7-12.7); Platelet Count 105 T/CUMM (130-400); Red Blood Count 3.38 MC/CUMM (3.8-5.5); White Blood Count 8.4 T/CUMM (4-12)
[2021-02-16 05:53] LABS: Bilirubin,Total 5.4 MG/DL (0.20-1.00); Calcium 10.4 MG/DL (8.5-10.1); Osmolality,Calculated 288.4 MOS/KG (273-304); Potassium 3.9 MMOL/L (3.5-5.1); Total Protein 7.5 G/DL (6.4-8.2)
[2021-02-16 09:09] LABS: Burr Cells Few; Eosinophils 2 % (0-10); Lymphocytes 10 % (20-55); Platelet Estimate Adequate; Segmented Neutrophils 83 % (50-85); Target Cells Few; Total Cells Counted 100
[2021-02-16] MEDS: INSULIN REGULAR 100 UNIT/ML SUBCUT SCH ×4 (09:36→21:18)
[2021-02-16] MEDS: RIFAXIMIN 550 MG TABLET PO SCH ×2 (09:43→21:03)
[2021-02-16] MEDS: PANTOPRAZOLE 40 MG VIAL IV SCH (09:45)
[2021-02-16] MEDS: MULTIVITAMIN (CENTRUM) TABLET PO SCH (09:57)
[2021-02-16 19:36] LABS: CMV DNA Detect/Quant, P Undetected IU/mL (Undetected)
[2021-02-16] MEDS ORDERED: LACTULOSE 320 GM/480 ML BOTTLE RECTAL ONE (22:00)
[2021-02-17] MEDS: LACTULOSE 20 GM/30 ML UDCUP PO SCH ×4 (02:06→21:37)
[2021-02-17] MEDS ORDERED: ENOXAPARIN 40 MG/0.4 ML SYRINGE SUBCUT SCH (04:00)
[2021-02-17 06:07] LABS: Basophils % 0.2 % (0.0-0.8); Eosinophils # 0.1 10*3/uL (0.0-0.87); Eosinophils % 0.9 % (0.00-10.9); Hematocrit 28.9 VOL% (35.7-47.0); Hemoglobin 9.7 GM/DL (12.0-16.0); Immature Granulocytes % 3.6 %; Immature Granulocytes Absolute 0.35 #; Lymphocytes # 0.9 10*3/uL (1.4-4.0); Lymphocytes % 9.7 % (21.3-54.2); Mean Corpuscular HGB Conc 33.6 GM/DL (32-36); Mean Corpuscular Volume 89.8 FL (87-102); Mean Platelet Volume 9.7 FL (9.6-12.0); Monocytes % 11.4 % (1.7-12.7); NRBC # 0.16 10*3/uL; Neutrophils % 74.2 % (38.7-73.9); Platelet Count 100 T/CUMM (130-400); Red Blood Count 3.22 MC/CUMM (3.8-5.5); Red Cell Distribution Width 21.4 % (9.3-17.3); White Blood Count 9.7 T/CUMM (4-12)
[2021-02-17 06:23] LABS: Albumin 0.9 G/DL (3.4-5.0); Calcium 11.4 MG/DL (8.5-10.1); Osmolality,Calculated 285.7 MOS/KG (273-304); Total Protein 7.2 G/DL (6.4-8.2)
[2021-02-17 06:28] LABS: Band Neutrophils 3 % (0-10); Lymphocytes 3 % (20-55); Nucleated Red Blood Cells 3 (0-5); Segmented Neutrophils 87 % (50-85); Total Cells Counted 100
[2021-02-17 06:29] LABS: Burr Cells Slight; Hypochromia Slight; Microcytosis 1+; Target Cells Slight
[2021-02-17 06:30] LABS: Platelet Estimate Decreased
[2021-02-17] MEDS: INSULIN REGULAR 100 UNIT/ML SUBCUT SCH ×2 (09:00→11:20)
[2021-02-17] MEDS ORDERED: SODIUM CHLORIDE 0.9% 1,000 ML IV ONE (09:40)
[2021-02-17] MEDS: RIFAXIMIN 550 MG TABLET PO SCH ×2 (09:59→21:37)
[2021-02-17] MEDS: PANTOPRAZOLE 40 MG VIAL IV SCH (09:59)
[2021-02-17] MEDS: MULTIVITAMIN (CENTRUM) TABLET PO SCH (09:59)
[2021-02-17] MEDS: DEXTROSE 5% NACL 0.45% 1,000 ML IV SCH (11:19)
[2021-02-17 11:59] LABS: ABG Base Excess -9.7 MMOL/L (-2.5-2.5); ABG HCO3 14.9 MMOL/L (20-26); ABG Oxygen Saturation 83.7 % (95-100); ABG PCO2 28.1 MM HG (35-48); ABG PH 7.342 (7.35-7.45); ABG PO2 52.5 MM HG (80-95); ABG TCO2 15.8 MMOL/L (23-27)
[2021-02-17] MEDS ORDERED: SODIUM BICARBONATE 50 MEQ/50 ML VIAL IV ONE (14:04)
[2021-02-17 16:03] VITALS: BP 122/74
[2021-02-17] MEDS ORDERED: DIGOXIN 0.5 MG/2 ML AMP IV ONE (17:50)
[2021-02-17] MEDS: levETIRAcetam 500 MG TABLET PO SCH (21:37)
[2021-02-17] MEDS ORDERED: METOPROLOL TARTRATE 5 MG/5 ML VIAL IV ONE (23:28)
[2021-02-18] MEDS ORDERED: CALCIUM CHLORIDE 1,000 MG/10 ML SYRINGE IV ONE (01:54)
[2021-02-18] MEDS ORDERED: SODIUM BICARBONATE 50 MEQ/50 ML VIAL IV ONE (01:54)
[2021-02-18 03:44] LABS: ABG Base Excess -6.7 MMOL/L (-2.5-2.5); ABG HCO3 18.9 MMOL/L (20-26); ABG Oxygen Saturation 93.5 % (95-100); ABG PCO2 22.6 MM HG (35-48); ABG PH 7.457 (7.35-7.45); ABG PO2 71.2 MM HG (80-95); ABG TCO2 14.5 MMOL/L (23-27)
[2021-02-18] MEDS: LACTULOSE 20 GM/30 ML UDCUP PO SCH ×5 (03:52→20:55)
[2021-02-18] MEDS: DEXTROSE 5% NACL 0.45% 1,000 ML IV SCH ×3 (04:39→18:16)
[2021-02-18 05:03] LABS: Basophils % 0.4 % (0.0-0.8); Eosinophils # 0.2 10*3/uL (0.0-0.87); Eosinophils % 1.7 % (0.00-10.9); Hematocrit 29.9 VOL% (35.7-47.0); Hemoglobin 10.2 GM/DL (12.0-16.0); Immature Granulocytes % 2.7 %; Immature Granulocytes Absolute 0.29 #; Lymphocytes # 1.6 10*3/uL (1.4-4.0); Lymphocytes % 14.6 % (21.3-54.2); Mean Corpuscular HGB Conc 34.1 GM/DL (32-36); Mean Corpuscular Volume 89.5 FL (87-102); Mean Platelet Volume 9.9 FL (9.6-12.0); Monocytes % 11.3 % (1.7-12.7); NRBC # 0.12 10*3/uL; Neutrophils % 69.3 % (38.7-73.9); Platelet Count 112 T/CUMM (130-400); Red Blood Count 3.34 MC/CUMM (3.8-5.5); Red Cell Distribution Width 22.3 % (9.3-17.3); White Blood Count 10.7 T/CUMM (4-12)
[2021-02-18 05:29] LABS: Albumin 0.9 G/DL (3.4-5.0); Bilirubin,Total 5.5 MG/DL (0.20-1.00); Calcium 10.9 MG/DL (8.5-10.1); Osmolality,Calculated 291.1 MOS/KG (273-304); Potassium 3.9 MMOL/L (3.5-5.1); Total Protein 7.1 G/DL (6.4-8.2)
[2021-02-18] MEDS: PANTOPRAZOLE 40 MG VIAL IV SCH (09:13)
[2021-02-18] MEDS: RIFAXIMIN 550 MG TABLET PO SCH ×2 (09:14→20:56)
[2021-02-18] MEDS: levETIRAcetam 500 MG TABLET PO SCH ×2 (09:14→20:55)
[2021-02-18] MEDS: MULTIVITAMIN (CENTRUM) TABLET PO SCH (09:14)
[2021-02-18] MEDS ORDERED: LACTULOSE 20 GM/30 ML UDCUP PO SCH (10:00)
[2021-02-18] MEDS ORDERED: MAGNESIUM SULF RIDER 4 GM/100 ML PREMIX IV ONE (10:08)
[2021-02-19] MEDS: LACTULOSE 20 GM/30 ML UDCUP PO SCH ×4 (00:14→13:39)
[2021-02-19 05:19] LABS: Basophils # 0.1 10*3/uL (0.0-0.2); Basophils % 1.2 % (0.0-0.8); Eosinophils # 0.1 10*3/uL (0.0-0.87); Eosinophils % 1.2 % (0.00-10.9); Hematocrit 31.9 VOL% (35.7-47.0); Hemoglobin 10.8 GM/DL (12.0-16.0); Immature Granulocytes % 2.9 %; Immature Granulocytes Absolute 0.26 #; Lymphocytes # 1.5 10*3/uL (1.4-4.0); Mean Corpuscular HGB Conc 33.9 GM/DL (32-36); Mean Corpuscular Volume 90.9 FL (87-102); Mean Platelet Volume 9.9 FL (9.6-12.0); Monocytes % 14.8 % (1.7-12.7); NRBC # 0.08 10*3/uL; Neutrophils % 62.9 % (38.7-73.9); Platelet Count 102 T/CUMM (130-400); Red Blood Count 3.51 MC/CUMM (3.8-5.5); White Blood Count 8.8 T/CUMM (4-12)
[2021-02-19 05:45] LABS: Osmolality,Calculated 294.1 MOS/KG (273-304); Potassium 3.9 MMOL/L (3.5-5.1)
[2021-02-19] MEDS: DEXTROSE 5% NACL 0.45% 1,000 ML IV SCH ×2 (06:24→19:34)
[2021-02-19] MEDS: levETIRAcetam 500 MG TABLET PO SCH ×2 (08:23→22:08)
[2021-02-19] MEDS: MULTIVITAMIN (CENTRUM) TABLET PO SCH (08:23)
[2021-02-19] MEDS: RIFAXIMIN 550 MG TABLET PO SCH ×2 (08:29→22:08)
[2021-02-19] MEDS: PANTOPRAZOLE 40 MG VIAL IV SCH (08:29)
[2021-02-19] MEDS: LACTULOSE 320 GM/480 ML BOTTLE RECTAL SCH ×2 (16:30→23:00)
[2021-02-20] MEDS: LACTULOSE 320 GM/480 ML BOTTLE RECTAL SCH ×4 (04:17→22:15)
[2021-02-20 05:37] LABS: Basophils % 0.2 % (0.0-0.8); Eosinophils # 0.1 10*3/uL (0.0-0.87); Eosinophils % 1.3 % (0.00-10.9); Hematocrit 29.9 VOL% (35.7-47.0); Hemoglobin 9.8 GM/DL (12.0-16.0); Immature Granulocytes % 1.4 %; Immature Granulocytes Absolute 0.14 #; Lymphocytes # 1.7 10*3/uL (1.4-4.0); Lymphocytes % 16.3 % (21.3-54.2); Mean Corpuscular HGB Conc 32.8 GM/DL (32-36); Mean Corpuscular Volume 92.6 FL (87-102); Mean Platelet Volume 10.7 FL (9.6-12.0); Monocytes % 15.3 % (1.7-12.7); NRBC # 0.11 10*3/uL; Neutrophils % 65.5 % (38.7-73.9); Platelet Count 102 T/CUMM (130-400); Red Blood Count 3.23 MC/CUMM (3.8-5.5); Red Cell Distribution Width 23.2 % (9.3-17.3); White Blood Count 10.1 T/CUMM (4-12)
[2021-02-20 05:56] LABS: Calcium 10.7 MG/DL (8.5-10.1); Osmolality,Calculated 293.3 MOS/KG (273-304); Potassium 3.5 MMOL/L (3.5-5.1)
[2021-02-20] MEDS: RIFAXIMIN 550 MG TABLET PO SCH ×2 (08:50→21:35)
[2021-02-20] MEDS: levETIRAcetam 500 MG TABLET PO SCH ×2 (08:51→21:35)
[2021-02-20] MEDS: PANTOPRAZOLE 40 MG VIAL IV SCH (08:54)
[2021-02-20] MEDS: DEXTROSE 5% NACL 0.45% 1,000 ML IV SCH ×3 (09:15→22:35)
[2021-02-20] MEDS: MULTIVITAMIN LIQUID (CENTRUM) 60 ML BOTTLE PO SCH (11:32)
[2021-02-21] MEDS: LACTULOSE 320 GM/480 ML BOTTLE RECTAL SCH ×4 (02:55→21:50)
[2021-02-21 05:43] LABS: Albumin 0.7 G/DL (3.4-5.0); Bilirubin,Total 6.1 MG/DL (0.20-1.00); Calcium 10.3 MG/DL (8.5-10.1); Osmolality,Calculated 291.4 MOS/KG (273-304); Potassium 3.9 MMOL/L (3.5-5.1); Total Protein 6.7 G/DL (6.4-8.2)
[2021-02-21] MEDS: levETIRAcetam 500 MG TABLET PO SCH ×2 (09:25→21:36)
[2021-02-21] MEDS: MULTIVITAMIN LIQUID (CENTRUM) 60 ML BOTTLE PO SCH (09:25)
[2021-02-21] MEDS: RIFAXIMIN 550 MG TABLET PO SCH ×2 (09:25→21:36)
[2021-02-21] MEDS: PANTOPRAZOLE 40 MG VIAL IV SCH (09:25)
[2021-02-21] MEDS: DEXTROSE 5% NACL 0.45% 1,000 ML IV SCH (11:00)
[2021-02-22] MEDS: DEXTROSE 5% NACL 0.45% 1,000 ML IV SCH ×2 (00:28→15:00)
[2021-02-22] MEDS: LACTULOSE 320 GM/480 ML BOTTLE RECTAL SCH ×4 (02:26→21:55)
[2021-02-22 06:13] LABS: Albumin 0.7 G/DL (3.4-5.0); Bilirubin,Total 6.1 MG/DL (0.20-1.00); Calcium 9.8 MG/DL (8.5-10.1); Osmolality,Calculated 291.7 MOS/KG (273-304); Potassium 3.8 MMOL/L (3.5-5.1); Total Protein 6.7 G/DL (6.4-8.2)
[2021-02-22] MEDS: PANTOPRAZOLE 40 MG VIAL IV SCH (08:20)
[2021-02-22] MEDS: MULTIVITAMIN LIQUID (CENTRUM) 60 ML BOTTLE PO SCH (08:20)
[2021-02-22] MEDS: RIFAXIMIN 550 MG TABLET PO SCH ×2 (08:20→21:54)
[2021-02-22] MEDS: levETIRAcetam 500 MG TABLET PO SCH ×2 (08:20→21:55)
[2021-02-22] MEDS: INSULIN REGULAR 100 UNIT/ML SUBCUT SCH ×2 (12:54→18:07)
[2021-02-23] MEDS: INSULIN REGULAR 100 UNIT/ML SUBCUT SCH ×2 (00:38→06:33)
[2021-02-23] MEDS ORDERED: MORPHINE 2 MG/1 ML SYRINGE IV ONE (00:45)
[2021-02-23] MEDS ORDERED: NOREPINEPHRINE 8 MG in SODIUM CHLORIDE 0.9% 242 ML IV PRN (01:06)
[2021-02-23] MEDS ORDERED: NOREPINEPHRINE 4 MG/4 ML VIAL IV ONE (01:09)
[2021-02-23] MEDS: LACTULOSE 320 GM/480 ML BOTTLE RECTAL SCH ×2 (03:48→12:46)
[2021-02-23] MEDS: DEXTROSE 5% NACL 0.45% 1,000 ML IV SCH (04:20)
[2021-02-23 05:32] LABS: Hematocrit 25.4 VOL% (35.7-47.0); Hemoglobin 8.2 GM/DL (12.0-16.0); Immature Granulocytes % 0.4 %; Immature Granulocytes Absolute 0.01 #; Lymphocytes # 0.3 10*3/uL (1.4-4.0); Lymphocytes % 14.3 % (21.3-54.2); Mean Corpuscular HGB Conc 32.3 GM/DL (32-36); Mean Corpuscular Volume 94.8 FL (87-102); Mean Platelet Volume 10.5 FL (9.6-12.0); Monocytes % 4.5 % (1.7-12.7); NRBC # 0.27 10*3/uL; Neutrophils % 80.8 % (38.7-73.9); Platelet Count 80 T/CUMM (130-400); Red Blood Count 2.68 MC/CUMM (3.8-5.5); Red Cell Distribution Width 23.8 % (9.3-17.3); White Blood Count 2.2 T/CUMM (4-12)
[2021-02-23 05:53] LABS: Albumin 0.6 G/DL (3.4-5.0); Bilirubin,Total 5.5 MG/DL (0.20-1.00); Calcium 8.9 MG/DL (8.5-10.1); Osmolality,Calculated 297.3 MOS/KG (273-304); Potassium 3.6 MMOL/L (3.5-5.1); Total Protein 5.8 G/DL (6.4-8.2)
[2021-02-23 05:57] LABS: Band Neutrophils 15 % (0-10); Lymphocytes 11 % (20-55); Nucleated Red Blood Cells 22 (0-5); Platelet Estimate Decreased; Segmented Neutrophils 68 % (50-85); Total Cells Counted 100
[2021-02-23] MEDS ORDERED: LACTATED RINGERS 500 ML IV ONE (08:15)
[2021-02-23] MEDS: PANTOPRAZOLE 40 MG VIAL IV SCH (09:01)
[2021-02-23] MEDS: MULTIVITAMIN LIQUID (CENTRUM) 60 ML BOTTLE PO SCH (09:01)
[2021-02-23] MEDS: levETIRAcetam 500 MG TABLET PO SCH (09:01)
[2021-02-23] MEDS: RIFAXIMIN 550 MG TABLET PO SCH (09:01)
[2021-02-23 09:12] LABS: ABG Base Excess -21.7 MMOL/L (-2.5-2.5); ABG HCO3 8.3 MMOL/L (20-26); ABG Oxygen Saturation 99.2 % (95-100); ABG PCO2 30.1 MM HG (35-48); ABG TCO2 7.8 MMOL/L (23-27); Pt O2 Delivery Device Ventilator
== END 2021-02-23 10:54 | disposition expired | DRG 432 ==
LOC: EDBD → EDUNIT# → N.ED 17:20 → SUATTDRO 02-11 02:33 → N.EDINP 02-11 02:33 → N.3E 02-11 05:54 → N.ICU 02-17 11:31
PROVIDERS: ADMIT Internal Medicine; ATTEND Internal Medicine